=== PATIENT | male | born 1980 | race Caucasian/White ===

== ENCOUNTER → 2020-12-18 | Outpatient (CLI) | payer BC | END | disposition home or self-care (01) | LOC: SMMGROBB 12:49 → EDSTATUS 13:15 → RAD 13:51 | PROVIDERS: ATTEND Nurse Practitioner Family | DX: M54.5 Low back pain (principal); Z20.822 Contact with and (suspected) exposure to COVID-19 | CPT/HCPCS: 76770 ==